=== PATIENT | male | born 1995 | race Caucasian/White ===

== ENCOUNTER 2022-04-18 16:11 | Emergency (ER) | payer OTHER ==
[2022-04-18 16:25] VITALS: TEMP 98.1; BMI 23.7
[2022-04-18 18:25] LABS: BASO % 0.3 % (0-2.0); HEMATOCRIT 52.3 % (35.4-49); HEMOGLOBIN 17.5 GM/dL (11.7-16.9); LYMPH % 17.9 % (8-40); MCH 29.1 pg (25.7-33.7); MCHC 33.4 g/dl (32.0-35.9); MEAN CELL VOLUME 87.2 fl (80-96); MEAN PLT VOLUME 8.8 fl (7.5-11.1); NEUT % 71.8 % (42.8-82.8); PLATELET COUNT 227 10^3/uL (134-434); RDW 13.1 % (11.9-15.9); WHITE BLOOD COUNT 9.5 K/mm3 (4.0-10.0)
[2022-04-18 18:49] LABS: CALCIUM 9.7 mg/dL (8.5-10.1)
[2022-04-18 18:50] LABS: ALBUMIN 3.9 g/dl (3.4-5.0); BLOOD UREA NITROGEN 8.4 mg/dL (7-18)
[2022-04-18 18:53] LABS: BILIRUBIN,TOTAL 2.2 mg/dL (0.2-1); CREATININE 1.1 mg/dL (0.55-1.3); TOT PROT 7.7 g/dl (6.4-8.2)
[2022-04-18] MEDS ORDERED: SODIUM CHLORIDE 0.9% 500 ML INFUS.BAG IV ONE (18:55)
[2022-04-18 20:53] VITALS: BP 123/81; PULSE 78; RESP 21
[2022-04-18] MEDS ORDERED: LABETALOL IN NACL, ISO-OSMOTIC 300 MG/300 ML BAG IV SCH (21:30)
== END 2022-04-18 22:16 | disposition short-term general hospital (02) ==
LOC: JER 16:11
DX: R10.12 Left upper quadrant pain (principal); I71.02 Dissection of abdominal aorta
CPT/HCPCS: 36415; 71275-TC; 74174-TC; 74177-TC; 76705-TC; 80053; 83690; 84484; 85025; 93005; 93010; 99285-25; Q9967